=== PATIENT | male | born 1955 | race Caucasian/White ===

== ENCOUNTER 2019-02-18 09:25 | Emergency (ER) | payer BC, OTHER ==
[2019-02-18] MEDS ORDERED: Meclizine HCl 25 MG TAB ONE ×2 (10:06→10:45)
--- NOTE | 2019-02-18 10:21 | RAD ---
EXAM: Single view of the chest HISTORY: Dizziness COMPARISON: 01/04/2019; chest CT 01/25/2018 FINDINGS: Single view of the chest shows a normal sized cardiomediastinal silhouette. Increased inte rstitial markings are present. There are stable nodular opacities in both lung apices. The bones are unremarkable. IMPRESSION: No evidence of acute cardiopulmonary disease
--- NOTE | 2019-02-18 10:29 | CT ---
BRAIN CT WITHOUT IV CONTRAST: Date: 02/18/19 HISTORY: Dizziness. FINDINGS: No focal mass or midline shift. No intra or extra-axial hemorrhage. Sinuses and mastoids are clear. IMPRESSION: No significant acute intracranial process. No mass or bleed. POS: [facility]
[2019-02-18 10:30] LABS: INR-International Normal Ratio 0.9; Prothrombin Time 12.4 SEC (12.0-14.7)
[2019-02-18 10:45] LABS: ALT (SGPT) 16 U/L (8-55); AST (SGOT) 23 U/L (5-34); Albumin 4.2 g/dL (3.4-4.8); Alkaline Phosphatase 70 U/L (40-110); Anion Gap 11 mmol/L (10-20); BUN (Urea Nitrogen) 8 mg/dL (8.4-25.7); Bilirubin, Total 0.5 mg/dL (0.2-1.2); Calc. Creatinine Clearance 0 mL/min (70-130); Calcium 9.3 mg/dL (7.8-10.44); Carbon Dioxide 29 mmol/L (23-31); Chloride 104 mmol/L (98-107); Estimated GFR-MDRD Greater than 90; Globulin 2.8 g/dL (2.4-3.5); Glucose 84 mg/dL (80-115); Potassium 4.1 mmol/L (3.5-5.1); Sodium 140 mmol/L (136-145)
[2019-02-18 11:08] LABS: #Basophils 0.1 thou/uL (0.0-0.2); #Eosinphils 0.1 thou/uL (0.0-0.7); #Lymphocytes 1.2 thou/uL (1.20-3.40); #Monocytes 0.4 thou/uL (0.11-0.59); #Neutrophils 3.7 thou/uL (1.40-6.50); %Basophils 1.3 % (0.0-1.0); %Lymphocytes 22.6 % (21.0-51.0); %Monocytes 7.3 % (0.0-10.0); %Neutrophils 66.8 % (42.0-75.0); Hemoglobin 15.8 g/dL (14.0-18.0); MDiff Complete? YES; Macrocytosis SLIGHT = 6-15 cells (100X) (0-5/hpf); Mean Corpuscular HGB CONC 33.1 g/dL (32.0-36.0); Mean Corpuscular Hemoglobin 36.2 pg (27.0-31.0); Mean Platelet Volume 9.9 fL (7.4-10.4); Platelet Count 140 thou/uL (130-400); Platelet Morphology Comment Appears Adequate; RBC Distribution Width 12.2 % (11.5-14.5); Red Blood Cell (RBC) Count 4.35 mill/uL (4.70-6.10); White Blood Cell (WBC) Count 5.5 thou/uL (4.8-10.8)
[2019-02-18] MEDS ORDERED: Diazepam 5 MG TAB ONE (13:02)
== END 2019-02-18 14:10 | disposition home or self-care (01) ==
LOC: ERS 09:25
DX: R42 Dizziness and giddiness (principal); E78.5 Hyperlipidemia, unspecified
CPT/HCPCS: 70450; 71045; 80053; 85025; 85610; 85730; 93005; 96360; J8597

== ENCOUNTER 2019-12-30 06:27 | Outpatient (CLI) | payer BC, OTHER ==
[2019-12-30 16:46] LABS: Hemoglobin 16.1 g/dL (14.0-18.0); Mean Corpuscular HGB CONC 32.2 g/dL (32.0-36.0); Mean Platelet Volume 10.6 fL (7.4-10.4); Platelet Count 162 thou/uL (130-400); RBC Distribution Width 12.5 % (11.5-14.5); Red Blood Cell (RBC) Count 4.72 mill/uL (4.70-6.10); White Blood Cell (WBC) Count 6.5 thou/uL (4.8-10.8)
[2019-12-30 17:04] LABS: Anion Gap 17 mmol/L (10-20); BUN (Urea Nitrogen) 13 mg/dL (8.4-25.7); Calc. Creatinine Clearance 0 mL/min (70-130); Calcium 9.3 mg/dL (7.8-10.44); Carbon Dioxide 26 mmol/L (23-31); Chloride 102 mmol/L (98-107); Estimated GFR-MDRD 75; Glucose 183 mg/dL (80-115); Potassium 4.3 mmol/L (3.5-5.1); Sodium 141 mmol/L (136-145)
[2019-12-31 14:48] LABS: SARS-CoV-2 MS2 Positive; SARS-CoV-2 N Gene Negative; SARS-CoV-2 S Gene Negative; SARS-CoV-2 by NAA Not Detected (NotDetected); SARS-CoV-2 orf1ab Negative
== END 2019-12-30 06:28 | disposition home or self-care (01) ==
LOC: LABBT 06:27
PROVIDERS: ATTEND Thoracic Surgery (Cardiothoracic Vascular Surgery)
DX: Z01.812 Encounter for preprocedural laboratory examination (principal); Z20.828 Contact with and (suspected) exposure to other viral communicable diseases; I73.9 Peripheral vascular disease, unspecified
CPT/HCPCS: 80048; 85027; 86850; 86900; 86901; 87635; U0003

== ENCOUNTER 2019-12-30 13:00 | Inpatient (IN) | payer BC ==
[2020-01-02 12:00] VITALS: BMI 24.7
[2020-01-03] MEDS ORDERED: Protamine Sulfate 50 MG/5 ML VIAL ONE (06:32)
[2020-01-03] MEDS ORDERED: Heparin 5,000 UNITS/ML VIAL ONE (06:32)
[2020-01-03] MEDS ORDERED: Fentanyl 100 MCG/2 ML VIAL ONE (06:39)
[2020-01-03] MEDS ORDERED: Midazolam HCl 2 mg/2 ml Vial ONE (07:09)
[2020-01-03] MEDS ORDERED: Insulin Regular 300 UNITS/3 ML VIAL SC PRN (09:12)
[2020-01-03] MEDS ORDERED: Acetaminophen 325 MG TAB PO PRN (09:12)
[2020-01-03] MEDS ORDERED: hydrALAZINE 20 MG/ML VIAL SLOW IVP PRN (09:12)
[2020-01-03] MEDS ORDERED: HYDROcodone/Acetaminophen 5/325 mg Tablet PO PRN ×2 (09:12)
[2020-01-03] MEDS ORDERED: Fentanyl 100 MCG/2 ML VIAL SLOW IVP PRN ×2 (09:12)
[2020-01-03] MEDS ORDERED: Ondansetron PF 4 MG/2 ML Vial IVP PRN (09:12)
[2020-01-03] MEDS ORDERED: Promethazine HCl 25 MG/ML VIAL SLOW IVP PRN (09:13)
[2020-01-03] MEDS ORDERED: Ondansetron HCl/PF 4 MG/2 ML Vial IVP PRN (09:13)
[2020-01-03] MEDS ORDERED: Promethazine HCl 25 MG/ML VIAL IM PRN (09:13)
[2020-01-03] MEDS ORDERED: Sodium Chloride 0.9% 1,000 ML IV SCH (09:15)
[2020-01-03] MEDS ORDERED: Aspirin 81 mg Enteric Coated Tablet PO SCH (09:30)
[2020-01-03] MEDS ORDERED: Aspirin Chewable 81 MG TAB ONE (11:58)
[2020-01-03] MEDS ORDERED: Ketorolac Tromethamine 0.5% Ophth Soln 3 ml Bottle L EYE SCH (12:00)
--- NOTE | 2020-01-03 13:51 | HP ---
HISTORY OF PRESENT ILLNESS: The patient has been followed for bilateral calf claudication, left greater than right and does have occluded superficial femoral arteries and PT and AT recanalized at the knee on the left, both were small and diseased. He did have a high-grade stenosis in his common femoral artery with significant disease in his profunda takeoff. Recommended that he undergo common femoral endarterectomy if he wished to improve his walking distance. He has also been counseled on smoking cessation multiple times. Past medical history includes trauma to the right leg, in which Dr. graham_performed a right leg fasciotomy and angiography with no intervention in 2011. He had bilateral lower leg fractures in high school with pins and plates and vocal cord polyps removed. PAST MEDICAL HISTORY: Depression, anxiety, peripheral artery disease, treated tuberculosis. MEDICATIONS: Include Naprosyn. SOCIAL HISTORY: He is a smoker, a pack and a half a day. PHYSICAL EXAMINATION: GENERAL: Alert, cooperative gentleman, no distress. LUNGS: Bilateral rhonchi. CARDIAC: Regular rate and rhythm. No murmurs. ABDOMEN: Soft, scaphoid, nontender. EXTREMITIES: He has palpable femoral pulses with no distal pulses. PLAN: Plan at this time is left femoral endarterectomy and informed consent has been obtained. Job ID: [id number] [facility]
[2020-01-03] MEDS ORDERED: Ketorolac Tromethamine 30 MG/ML VIAL ONE (13:54)
[2020-01-03] MEDS ORDERED: Rocuronium Bromide 10 MG/ML (10ML VIAL) ONE (13:54)
[2020-01-03] MEDS ORDERED: Ondansetron PF 4 MG/2 ML Vial ONE (13:54)
[2020-01-03] MEDS ORDERED: Glycopyrrolate 0.2 MG/ML 5 ML SYRINGE ONE (13:54)
[2020-01-03] MEDS ORDERED: PROPOFOL 200 MG/20 ML VIAL ONE (13:54)
[2020-01-03] MEDS ORDERED: Lidocaine 1% PF 5 ML VIAL ONE (13:54)
--- NOTE | 2020-01-03 15:47 | OP ---
DATE OF PROCEDURE: 01/03/2020 PREOPERATIVE DIAGNOSIS: Peripheral vascular disease, lifestyle limiting claudication. PROCEDURE PERFORMED: Left common femoral and profunda femoral endarterectomy with bovine patch angioplasty. ANESTHESIA: General. ESTIMATED BLOOD LOSS: Minimal. DESCRIPTION OF PROCEDURE: After adequate anesthesia had been obtained, ultrasound was used to guide the incision and carried down to the common femoral artery. Control was obtained proximally as well as on the profunda. There were four small branches that were controlled with silk ligatures. After heparinization, clamps were applied, arteriotomy performed, and an endarterectomy was performed proximally through the tight common femoral artery stenosis and then extending down about a 1.5 cm onto the left profunda. After endarterectomizing the common and profunda femoral artery, the superficial femoral artery orifice was also endarterectomized. A bovine patch was then used to close the arteriotomy. Prior to completing the suture line, the vessels were backflushed and forward flushed, and the area thoroughly irrigated. Flow was restored down the profunda and then superficial femoral artery. Heparin was partially reversed with protamine and after obtaining good hemostasis, the wound was irrigated and closed in layers. Job ID: [id number]
[2020-01-03] MEDS ORDERED: CEFAZOLIN 2 GM in Premix Bag 1 BAG IVPB SCH (16:00)
[2020-01-03] MEDS ORDERED: Enoxaparin Sodium 40 MG/0.4 ML SYRINGE SC SCH (21:00)
[2020-01-03] MEDS ORDERED: Atorvastatin Calcium 10 MG TAB PO SCH (21:00)
[2020-01-04] MEDS ORDERED: Aspirin 325 MG TAB PO SCH (09:00)
== END 2020-01-03 13:55 | disposition home or self-care (01) | DRG 254 ==
LOC: SURG A 01-03 06:07
PROVIDERS: ADMIT Thoracic Surgery (Cardiothoracic Vascular Surgery); ATTEND Thoracic Surgery (Cardiothoracic Vascular Surgery)
PROC: 04CL0ZZ Extirpation of Matter from Left Femoral Artery, Open Approach (ICD-10-PCS; principal; 2020-01-03)
PROC: 04UL0JZ Supplement Left Femoral Artery with Synthetic Substitute, Open Approach (ICD-10-PCS; 2020-01-03)
DX: I70.212 Atherosclerosis of native arteries of extremities with intermittent claudication, left leg (principal); F32.9 Major depressive disorder, single episode, unspecified; F41.9 Anxiety disorder, unspecified; F17.200 Nicotine dependence, unspecified, uncomplicated; Z86.11 Personal history of tuberculosis; Z79.1 Long term (current) use of non-steroidal anti-inflammatories (NSAID)
CPT/HCPCS: J0690; J1644; J2250; J2720; J3010